=== PATIENT | female | born 1975 | race Caucasian/White ===

== ENCOUNTER 2024-12-16 09:33 | Outpatient (REF) | payer OTHER, SELFPAY ==
--- OUTSIDE RECORDS SUMMARY | 2024-12-16 10:32 | XMS_ITS | Clinical Summary ---
Author Organization [facility] Address [address] [place] [address] Care Team Providers Care Restuarant Crew Worker Name Role Phone Jessica Gordon MD Primary Care Provider [phone] Allergies No known active allergies Medications Medication Sig Dispensed Refills Start Date End Date Status Synthroid 75 MCG tablet Take 75 mcg by mouth daily. 0 04/20/2022 Active citalopram (CeleXA) 40 MG tablet Take 40 mg by mouth daily. 0 03/10/2022 Active diclofenac (VOLTAREN) 75 MG EC tablet TAKE 1 TABLET BY MOUTH 2 TIMES DAILY FOR 180 DAYS. 0 03/29/2022 Active famotidine (PEPCID) 20 MG tablet Take 1 tablet by mouth 2 (two) times a day. 0 03/10/2022 Active levETIRAcetam (KEPPRA) 1000 MG tablet Take 1 tablet by mouth 2 (two) times a day. 0 03/10/2022 Active Active Problems Problem Noted Date Diagnosed Date Primary osteoarthritis of both knees 04/26/2022 Morbid obesity with body mass index of 50.0-59.9 in adult 04/26/2022 Family History Medical History Relation Name Comments Hyperlipidemia Mother Relation Name Status Comments Mother Social History Tobacco Use Types Packs/Day Years Used Date Smoking Tobacco: Never Smokeless Tobacco: Never Alcohol Use Standard Drinks/Week Comments Not Currently 0 (1 standard drink = 0.6 oz pur e alcohol) Sex and Gender Information Value Date Recorded Sex Assigned at Not on file Gender Identity Not on file Sexual Orientation Not on file Job Start Date Occupation Industry Not on file Not on file Not on file Last Filed Vital Signs Vital Sign Reading Time Taken Comments Blood Pressure - - Pulse - - Temperature - - Respiratory Rate - - Oxygen Saturation - - Inhaled Oxygen Concentration - - Weight 168.3 kg (371 lb) 04/26/2022 10:18 AM EDT Height 167.6 cm (5' 6 ) 04/26/2022 10:18 AM EDT Body Mass Index 59.88 04/26/2022 10:18 AM EDT Plan of Treatment Health Maintenance Due Date Last Done Comments Hepatitis B Vaccines (1 of 3 - 3-dose series) 1976 Hepatitis C Screening 1976 COVID-19 Vaccine (#1) 05/14/1977 Depression Screening 1988 BMI Counseling 1994 Preventative Health Evaluation 1994 Cervical Cancer Screening (Pap Smear) 1997 DTap / Tdap / Td (2 - Td or Tdap) 01/28/2018 01/29/2008 Colon Cancer Screening (Colonoscopy) 2021 Influenza Vaccine (#1) 2024 1, 07/13/2020, 09/18/2019, Additional history exists Pneumococcal Vaccine Aged Out No long er eligible based on patient's age to complete this topic RSV Ped < 20 months Aged Out No longe r eligible based on patient's age to complete this topic Care Teams Restuarant Crew Worker Relationship Specialty Start Date End Date Jessica Gordon MD [address] [place] [address] [address] [place] [address] PCP - General Internal Medicine 04/26/22
--- OUTSIDE RECORDS SUMMARY | 2024-12-16 10:32 | XMS_ITS | Clinical Summary ---
Author Organization [facility] [address] [place] [address] Address [address] [place] [address] Phone Care Team Providers Care Music Store Manager Name Role Phone Sonia Schwartz MD Primary Care Provider [phone] Allergies No known active allergies Medications levETIRAcetam (KEPPRA) 1,000 mg tablet Take 1 Tablet by mouth 2 times daily. In addition to 250 mg twice daily 02/27/20 24 Active levETIRAcetam (KEPPRA) 250 mg tablet TAKE 1 TABLET BY MOUTH 2 TIMES DAILY WITH 1000 MG TAB TWICE DAILY 02/27/20 24 Active betamethasone, augmented, (DIPROLENE-AF) 0.05 % cream Apply small amount to the affected area of feet twice daily. 02/13/20 24 Active betamethasone valerate (VALISONE) 0.1 % ointment Apply to affected area twice daily 03/21/20 23 Active albuterol HFA (PROAIR HFA ; PROVENTIL HFA ; VENTOLIN HFA) 90 mcg/actuation inhaler Inhale 1 Puff into the lungs every 4 hours as needed for Cough or Wheezing. 12/05/19 23 Active famotidine (PEPCID) 20 mg tablet TAKE 1 TABLET BY MOUTH TWICE A DAY 180 tablet 1 10/31/19 25 Active Synthroid 75 mcg tablet TAKE 1 TABLET BY MOUTH EVERY DAY 90 tablet 1 10/31/19 25 Active multivitamin tabletIndicatio ns:Class 3 severe obesity due to excess calories with serious comorbidity and body mass index (BMI) of 60.0 to 69.9 in adult Take 1 tablet by mouth 1 (one) time each day. 30 each 2 11/18/19 25 025 Active tirzepatide, weight loss, (Zepbound) 7.5 mg/0.5 mL injection Inject 0.5 mL (7.5 mg total) under the skin every 7 (seven) days for 28 days. 2 mL 11/19/19 25 025 Active citalopram (CeleXA) 40 mg tablet TAKE 1 TABLET BY MOUTH EVERY DAY 60 tablet 12/04/19 25 Active citalopram (CeleXA) 40 mg tablet TAKE 1 TABLET BY MOUTH EVERY DAY 90 tablet 08/04/20 24 025 Discontinued tirzepatide, weight loss, (Zepbound) 7.5 mg/0.5 mL injection Inject 0.5 mL (7.5 mg total) under the skin every 7 (seven) days for 28 days. 2 mL 10/17/19 25 025 Discontinued(Re order) multivitamin tablet Take 1 tablet by mouth 1 (one) time each day. 30 each 2 11/05/19 25 025 Discontinued(Re order) Active Problems Problem Noted Date Diagnosed Date Class 3 severe obesity with serious comorbidity and body mass index (BMI) of 60.0 to 69.9 in adult 07/31/2024 Morbid obesity with BMI of 6 0.0-69.9, adult ([facility] V24, [facility] V28) 06/09/2024 Pre-hypertension 07/05/2021 Abdominal wound dehiscence 09/18/2019 Overview (06/09/2024): After abdominal hernia repair with mesh. 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 V24, [facility] V28) 03/28 Overview (06/09/2024): Follows with neurology Anxiety 04/21/2010 Intermittent asthma 07/12/2007 Encounters Date Type Department Care Team Description 11/04/2024 3:15 PM EDT Office Visit Bariatric Surgery - [address] [phone] Sara Restrepo PA Nausea (Primary Dx); Class 3 severe obesity due to excess calories with serious comorbidity and body mass index (BMI) of 60.0 to 69.9 in adult ([facility] V24, [facility] V28) 10/29/2024 2:30 PM EST Telemedicine Bariatric Surgery - [address] [phone] Nicolasa Hedrick, JIMMY Class 3 severe obesity with serious comorbidity and body mass index (BMI) of 60.0 to 69.9 in adult, unspecified obesity type ([facility] V24, [facility] V28) (Primary Dx) 10/15/2024 Telephone Bariatric Surgery - [address] [phone] Sara Restrepo PA Med Refill (Zepbound) from Last 3 Months Immunizations Name Administration Dates Next Due H1N1 Inj Preservative Free 08/26/2009 Influenza Quadravalent, MDCK , 0.5ml, preservative free (Flucelvax) 6mo and older 07/05/2021,07/13/2020,09/18/2019,05/07 Influenza trivalent, 0.5mL, preservative free (Fluarix; FluLaval; Fluzone) ages 6mo and older (Afluria) 3 years and older 05/23/2013,05/31/2011,06/07/2010,08/26,06/10/2008,07/12/2007,07/28/2006 ,08/02/2005 Pneumococcal polysaccharide 23 valent (Pneumovax 23) 2yo and older 03/21/2023 Tdap Tetanus diptheria acell ular pertussis (Boostrix; Adacel) 7yo and older 01/29/2008 Surgical History Surgery Date Site/Laterality Comments CHOLECYSTECTOMY PROCEDURE: [place] LAPAROSCOPY SURG CHOLECYSTECTOMY OTHER SURGICAL HISTORY PROCEDURE: ARTHROSCOPY PROCEDURE NEC TONSILLECTOMY PROCEDURE: HISTORICAL TONSILLECTOMY ELBOW SURGERY PROCEDURE: HISTORICAL ELBOW SURGERY; COMMENT: elbow replacement surgery TUBAL LIGATION 07/30/2007 PROCEDURE: HISTORICAL TUBAL LIGATION UMBILICAL HERNIA REPAIR PROCEDURE: LAP UMBILICAL HERNIA REPAIR OOPHORECTOMY 08/05/2012 PROCEDURE: HISTORICAL OOPHORECTOMY; COMMENT: mucinous cystadenoma Medical History Medical History Date Comments Anxiety 04/21/2010 DX:Anxiety Fibroadenoma of breast 05/23/2017 DX:Fibroa denoma of breast; COMMENT: S/p biopsy 04/2017 benign fibroadenoma Intermittent asthma 07/12/2007 DX:Intermitt ent asthma Seizure disorder ([facility] V2 4, [facility] V28) 04/17/2011 DX:Seizure disorder ([facility]) Morbid obesity with BMI of 5 0.0-59.9, adult ([facility]/H[facility] V24, [facility] V28) 07/16/2017 DX:Morbid obesity wit h BMI of 50.0-59.9, adult ([facility]); COMMENT: Follows with jale[facility] management, Gastric bypass pending Allergic rhinitis due to allergen 12/24/2017 DX:Allergic rhinitis due to allergen Gastroesophageal reflux disease 12/24/2017 DX:Gastroesophageal reflux disease Family History Medical History Relation Name Comments Diabetes Maternal Grandfather Hypertension Maternal Grandfather Diabetes Maternal Grandmother Hypertension Maternal Grandmother Diabetes Mother Hypertension Mother Breast cancer Neg Hx Relation Name Status Comments Maternal Grandfather Maternal Grandmother Mother Alive HTN Son 1 Alive Son 2 Alive Social History Tobacco Use Types Packs/Day Years Used Date Smoking Tobacco: Never Smokeless Tobacco: Never Tobacco Cessation:Counseling Given: Not Answered Alcohol Use Standard Drinks/Week Comments Yes 0 (1 standard drink = 0.6 oz pur e alcohol) Comments Unknown Sex and Gender Information Value Date Recorded Sex Assigned at Not on file Legal Sex Female 2:58 AM EST Gender Identity Not on file Sexual Orientation Not on file Obstetrics History Last Filed Vital Signs Vital Sign Reading Time Taken Comments Blood Pressure 135/78 11/04/2024 3:05 PM EDT Pulse 71 11/04/2024 3:05 PM EDT Temperature - - Respiratory Rate - - Oxygen Saturation - - Inhaled Oxygen Concentration - - Weight 166 kg (366 lb 6.4 oz) 11/04/2024 3:05 PM EDT Height 165.1 cm (5' 5 ) 11/04/2024 3:05 PM EDT Body Mass Index 60.97 11/04/2024 3:05 PM EDT Plan of Treatment Upcoming Encounters Date Type Department Care Team (Late st Contact Info) Description 12/31/2024 2:00 PM EDT Office Visit Endocrinology [facility] [address] [place] [address] Samaria Summers PA [address] [place] [address] 01/22/2025 1:00 PM EDT Office Visit Adult Medicine [address] [phone] Sonia Schwartz MD [address] [place], [place] 01/29/2025 3:00 PM EDT Nutrition Bariatric Surgery - [place] [address] [phone] Nicolasa Hedrick, JIMMY [address] [phone] 02/04/2025 3:00 PM EDT Office Visit Bariatric Surgery - [place] [address] [phone] Sara Restrepo PA [address] [address] 02/24/2025 3:15 PM EDT Office Visit Obstetrics & Gynecology - [facility] [address] [place] [phone] Nicolasa Cedillo DO [address] [place] [address] Health Maintenance Due Date Last Done Comments Breast Cancer Screening 1976 COVID-19 Vaccine (#1) 1981 Hepatitis B Vaccines (1 of 3 - 19+ 3-dose series) 11/12/1995 DTaP,Tdap,and Td Vaccines (2 - Td or Tdap) 01/28/2018 01/29/2008 Colorectal Cancer Screening: Colonoscopy 08/05/2022 Depression Screening 08/05/2022 Social Influencers of Health Screening 08/05/2022 Pneumococcal Vaccine: Pediatrics (0 to 5 Years) and At-Risk Patients (6 to 64 Years) (2 of 2 - PCV) 03/21/2024 03/21/2023 Influenza Vaccine (Season Ended) 2025 07/05/2021, 07/13/2020, 09/18/2019, Additional history exists Cervical Cancer Screening: HPV 08/14/2027 08/14/2022 Cholesterol Screening (Lipid Panel) 02/12/2029 02/13/2024, 02/13/2024 HIV Screening Completed 07/05/2020 Hepatitis C Screening Completed 07/05/2020 HIB Vaccines Aged Out No longer eligi ble based on patient's age to complete this topic HPV Vaccines Aged Out No longer eligi ble based on patient's age to complete this topic Hepatitis A Vaccines Aged Out No long er eligible based on patient's age to complete this topic IPV Vaccines Aged Out No longer eligi ble based on patient's age to complete this topic MMR Vaccines Aged Out No longer eligi ble based on patient's age to complete this topic Meningococcal ACWY Vaccine Aged Out N o longer eligible based on patient's age to complete this topic Meningococcal B Vaccine Aged Out No l onger eligible based on patient's age to complete this topic RSV Immunization Patients Under 20 months Aged Out No longer eligible based on patient's age to complete this topic Varicella Vaccines Aged Out No longer eligible based on patient's age to complete this topic Procedures Procedure Name Priority Date/Time Associated Diagnosis Comments LIPID PANEL Routine 02/13/2024 HPV Routine 08/14/2022 HEPATITIS C SCREENING Routine 07/05/2020 HIV SCREENING Routine 07/05/2020 from Last 3 Months or Most Recently Relevant to Health Maintenance Results * (ABNORMAL) Lipid panel (02/13/2024) [facility] LDL/HDL Ratio 3 0 - 4 Triglycerides 78 0 - 150 mg/dL Cholesterol 125 0 - 200 mg/dL HDL 37(A) >=40 mg/dL LDL Cholesterol 73 0 - 100 mg/dL Blood Venous blood specimen / Unknown [facility] Provider LAB BLOOD ORDERABLES Karin l Result * Cervical Cancer Screening: HPV (08/14/2022) [facility] Cervical Cancer Screening: HPV negative, abstracted [facility] Provider HEALTH MAINTENANCE Final Result * HIV Screening (07/05/2020) [facility] HIV Screening abstracted [facility] Provider HEALTH MAINTENANCE Final Result * Hepatitis C Screening (07/05/2020) [facility] Hepatitis C Screening abstracted [facility] Provider HEALTH MAINTENANCE Final Result from Last 3 Months or Most Recently Relevant to Health Maintenance Insurance [facility] Member Subscriber Plan / Payer (Ef fective 2020-Present) Name:Genie Benitez Relation to Subscriber:Self Name:Genie Benitez Payer ID:[id number] Group ID:[id number] Type:Not on file Address: [place] [address] [address] [phone] Advance Directives Documents on File Type Date Recorded Patient Rotor Coil Taper Expl anation Health Care Decision (hx) 06/30/2009 AD MARTINI DIRECTIVE Health Care Decision (hx) 06/30/2009 AD MARTNII DIRECTIVE Care Teams Music Store Manager Relationship Specialty Start Date End Date Sonia Schwartz MD [address] [place] [id number] PCP - General Internal Medicine 07/15/24
== END 2024-12-16 09:34 | disposition home or self-care (01) ==
LOC: HO.MAMMO 09:33
PROVIDERS: PCP Internal Medicine; Visit Provider Internal Medicine
DX: Z12.31 Encounter for screening mammogram for malignant neoplasm of breast (principal)
CPT/HCPCS: 77063; 77067

== ENCOUNTER → 2024-12-16 10:00 | Outpatient (BNV) | payer OTHER, SELFPAY | PROVIDERS: PCP Internal Medicine; Visit Provider Internal Medicine | DX: Z12.31 Encounter for screening mammogram for malignant neoplasm of breast (principal) | CPT/HCPCS: 77063; 77067 ==